=== PATIENT | male | born 1970 | race Caucasian/White ===

== ENCOUNTER 2023-04-15 16:10 | Emergency (ER) | payer BC, SELFPAY ==
[2023-04-15 16:23] VITALS: BP 134/87; PULSE 63; RESP 16; TEMP 36.3; O2SAT 100
[2023-04-15 16:25] VITALS: BP 134/87; PULSE 63; RESP 16; TEMP 36.3; O2SAT 100
--- NOTE | 2023-04-15 16:40 | ED.UPPEXIN ---
HPI - Extremity Injury (Upper) General Chief Complaint: Skin/Abscess/Foreign Body Stated Complaint: SPLINTER IN L THUMB Time Seen by Provider: 04/15/23 16:37 Source: patient and RN notes reviewed Mode of arrival: ambulatory Limitations: no limitations History of Present Illness HPI narrative: Patient presents today with a wooden splinter to the left thumb that has been present for the past 2 days. Patient has attempted multiple times to remove it himself without success. He has also been applying peroxide. Related Data Home Medications Medication Instructions Recorded Confirmed diazepam 10 mg tablet 10 mg PO DAILY 04/15/23 04/15/23 ergocalciferol (vitamin D2) 1,250 1,250 mcg PO DAILY 04/15/23 04/15/23 mcg (50,000 unit) capsule (Vitamin D2) hydrocodone 5 mg-acetaminophen 325 1 tablet PO DAILY 04/15/23 04/15/23 mg tablet meloxicam 15 mg tablet 15 mg PO HS 04/15/23 04/15/23 methylphenidate HCl 20 mg tablet 20 mg PO DAILY 04/15/23 04/15/23 pantoprazole 40 mg tablet,delayed 40 mg PO DAILY 04/15/23 04/15/23 release Allergies Allergy/AdvReac Type Severity Reaction Status Date / Time No Known Allergies Allergy Verified 04/15/23 16:21 Review of Systems Review of Systems: CONSTITUTIONAL: Denies body aches, fever, chills, or sweats. EYES: Denies visual changes, redness, or discharge. ENT: Denies rhinorrhea, congestion, sore throat, or otalgia. CARDIOVASCULAR: Denies chest pain, palpitations, or edema. RESPIRATORY: Denies cough or dyspnea. GASTROINTESTINAL: Denies abdominal pain, nausea, vomiting, or diarrhea. GENITOURINARY: Denies dysuria or hematuria. SKIN: Denies rash, itching. + splinter to left thumb MUSCULOSKELETAL: Denies back pain, joint pain, or myalgia. NEUROLOGIC: Denies headache, numbness, tingling, or weakness. PSYCH: Denies depression or anxiety. PMFSH Comments At time of signature, I have reviewed and agree with nursing past medical, surgical, social and family history unless otherwise noted. Please see nursing chart for further information. There is no relevant family history pertinent to the presenting complaint Exam Narrative: GENERAL: Well-appearing, well-nourished, and in no acute distress. HEAD: Normocephalic, atraumatic. EYES: EOMI. No redness or drainage. Conjunctivae normal. ENT: Mucous membranes pink and moist. NECK: Normal AROM. CHEST: No respiratory distress. EXTREMITIES: Normal range of motion. No edema. SKIN: Warm, dry, no rash. Capillary refill normal. Normal skin turgor. + obvious foreign body to the pad of the left thumb with surrounding erythema. Tender to palpation NEURO: No focal deficits. Alert and oriented x3. Gait steady. PSYCH: Normal affect. No signs of depression or anxiety. Course Course Level of Care: Express Care Visit Vital Signs Vital signs: Vital Signs Temperature 97.3 F L 04/15/23 16:23 Pulse Rate 63 04/15/23 16:23 Respiratory Rate 16 04/15/23 16:23 Blood Pressure 134/87 04/15/23 16:23 Pulse Oximetry 100 04/15/23 16:23 Temperature 97.3 F L 04/15/23 16:25 Pulse Rate 63 04/15/23 16:25 Respiratory Rate 16 04/15/23 16:25 Blood Pressure 134/87 04/15/23 16:25 Pulse Oximetry 100 04/15/23 16:25 Reviewed Procedures Foreign Body Removal Foreign Body #1: Foreign Body Removal Date: 04/15/23 Foreign Body Removal Time: 16:53 Site: left and other (Thumb) Description of foreign body: other (Wooden splinter) Sedation/Analgesia: other (1% lidocaine) Technique: manual removal Confirmed by:: direct visualization Complications: none Neurovascular: no change from pre-procedure Foreign Body Removal Narrative: Band-Aid applied MDM - Extremity Injury (Upper) Differential Diagnosis Differential diagnosis: Likely other (Foreign body, cellulitis, abscess) Critical Care Time Critical Care Time Critical Care Time: No Discharge Plan Discharge Cl
[2023-04-15] MEDS: LIDOCAINE HCL 1% LOCAL INJ 2 ML AMPUL INFILTRATE (16:43)
== END 2023-04-15 16:59 | disposition home or self-care (01) ==
PROVIDERS: Emergency Provider Nurse Practitioner
DX: S61.042A Puncture wound with foreign body of left thumb without damage to nail, initial encounter (principal); W45.8XXA Other foreign body or object entering through skin, initial encounter
CPT/HCPCS: 99213; G0463